=== PATIENT | female | born 1975 | race African-American/Black ===

== ENCOUNTER 2023-10-28 23:18 | Inpatient (IN) | payer OTHER ==
[~2023-10-28] VITALS: Ht 170.2 cm; Wt 102.3 kg
[2023-10-28] MEDS ORDERED: LISI-663 PO (23:35)
[2023-10-28] MEDS ORDERED: AMLO10TA55 PO (23:35)
[2023-10-28] MEDS ORDERED: HYDR25TA2 PO (23:35)
[2023-10-28 23:59] LABS: BASOPHILS % (AUTO) 0.3 % (0.0-2.0); EOSINOPHILS % (AUTO) 1.8 % (1.0-6.0); HEMATOCRIT 39.4 % (36-46); HEMOGLOBIN 13.2 g/dL (12.0-16.0); LYMPHOCYTES # (AUTO) 4.2 K/uL (1.0-4.8); MEAN CORPUSCULAR HEMOGLOBIN 26.5 pg (26.0-34.0); MEAN CORPUSCULAR HGB CONC 33.5 G/dL (31.0-37.0); MEAN CORPUSCULAR VOLUME 79 fL (80-100); MONOCYTES # (AUTO) 0.7 K/uL (0.1-1.0); MONOCYTES % (AUTO) 6.2 % (2.0-9.0); NEUTROPHILS # (AUTO) 5.6 K/uL (1.8-7.7); NEUTROPHILS % (AUTO) 52.7 % (40.0-70.0); PLATELET COUNT (AUTO) 338 K/uL (150-450); RED BLOOD CELL COUNT(AUTO) 4.98 MIL/uL (4.00-5.20); RED CELL DISTRIBUTION WIDTH 13.4 % (11.5-14.5); WHITE BLOOD COUNT (AUTO) 10.7 K/uL (4.5-11.0)
[2023-10-29 00:09] LABS: ANION GAP 8 mmol/L (8-16); CALCIUM, TOTAL 9.9 mg/dL (8.8-10.5); CARBON DIOXIDE 29 mmol/L (22-29); CHLORIDE 96 mmol/L (98-107); CREATININE 1.13 mg/dL (0.60-1.30); GLOMERULAR FILTR. RATE CALC > 60 mL/min (>60); GLUCOSE,RANDOM 378 mg/dL (70-110); POTASSIUM 3.9 mmol/L (3.5-5.1); SODIUM SERUM 133 mmol/L (136-145); UREA NITROGEN, BLOOD 18 mg/dL (7-18)
[2023-10-29 00:15] LABS: ALANINE AMINOTRANSFERASE 31 U/L (12-78); ALBUMIN 3.8 g/dL (3.4-5.0); ALKALINE PHOSPHATASE 90 U/L (46-116); ASPARTATE AMINOTRANSFERASE 14 U/L (15-37); BILIRUBIN,TOTAL 0.6 mg/dL (0.1-1.0); TOTAL PROTEIN, SERUM 8.5 g/dL (6.4-8.2); TROPONIN I-HIGH SENSITIVITY 5 ng/L (<51)
[2023-10-29] MEDS: ONDANSETRON HCL 4 MG/2 ML VIAL IVP ONE (01:24)
[2023-10-29] MEDS: NITROGLYCERIN 2% (1 GM=INCH) OINTMENT PACKET TP ONE (01:24)
[2023-10-29] MEDS: MORPHINE SULFATE 4 MG/ML SYRINGE IVP ONE (01:25)
[2023-10-29] MEDS: CLOPIDOGREL BISULFATE 75 MG TABLET PO ONE (01:26)
[2023-10-29] MEDS: INSULIN REGULAR, HUMAN 100 UNITS/ML IVP ONE ×2 (01:26→04:48)
[2023-10-29 05:37] VITALS: BP 122/65; PULSE 70; RESP 19; TEMP 97.9
[2023-10-29] MEDS ORDERED: MAGNESIUM HYDROXIDE SUSPENSION 30 ML UDCUP PO PRN (08:00)
[2023-10-29] MEDS ORDERED: DEXTROSE 50%-WATER 25 GM/50 ML SYRINGE IVP PRN (08:00)
[2023-10-29] MEDS: ACETAMINOPHEN 325 MG TABLET PO PRN (08:32)
[2023-10-29] MEDS: FAMOTIDINE 20 MG TABLET PO SCH (08:32)
[2023-10-29 08:38] VITALS: BP 133/85; PULSE 92; RESP 18; TEMP 97.7
[2023-10-29 09:18] LABS: TROPONIN I-HIGH SENSITIVITY 5 ng/L (<51)
[2023-10-29 11:22] VITALS: BP 140/88; PULSE 95; RESP 16; TEMP 97.6
[2023-10-29] MEDS: INSULIN LISPRO 100 UNITS/ML SQ PRN (11:22)
[2023-10-29 15:20] VITALS: BP 115/80; PULSE 94; RESP 18; TEMP 98
[2023-10-30 00:13] LABS: GLUCOMETER DEV NAME(LOC) 5S.2C; GLUCOSE,POINT OF CARE 306 MG/DL (70-110)
== END 2023-10-29 15:45 | disposition home or self-care (01) | DRG 203 ==
LOC: EMS 23:18 → 5S 10-29 00:54
PROVIDERS: ADMIT Internal Medicine; ATTEND Internal Medicine
DX: R07.89 Other chest pain (principal); E11.65 Type 2 diabetes mellitus with hyperglycemia; I10 Essential (primary) hypertension; R51.9 Headache, unspecified; E66.01 Morbid (severe) obesity due to excess calories; Z68.35 Body mass index [BMI] 35.0-35.9, adult; Z83.3 Family history of diabetes mellitus; Z88.6 Allergy status to analgesic agent; Z90.710 Acquired absence of both cervix and uterus; Z91.148 Patient's other noncompliance with medication regimen for other reason; F45.41 Pain disorder exclusively related to psychological factors; G47.33 Obstructive sleep apnea (adult) (pediatric)
CPT/HCPCS: 70450; 71045; 80053; 82962; 84484; 85025; 93005; 99285; G0378; J1815; J2270; J2405; 36415-L1; 36415-TC